=== PATIENT | female | born 1970 | race African-American/Black ===

== ENCOUNTER 2023-07-27 11:09 | Observation (INO) | payer OTHER ==
[2023-07-27 11:30] VITALS: BMI 33.8
[2023-07-27] MEDS ORDERED: ONDANSETRON 4 MG/2 ML VIAL IVPUSH ONE ×2 (12:08→21:11)
[2023-07-27] MEDS ORDERED: ONDANSETRON 4 MG/2 ML VIAL ONE ×2 (12:11→21:21)
[2023-07-27] MEDS ORDERED: MECLIZINE HCL 25 MG TABLET (FP) PO ONE (12:15)
[2023-07-27 12:29] LABS: BASO % 0.4 % (0-2.0); HEMATOCRIT 43.7 % (32.4-45.2); HEMOGLOBIN 14.5 GM/dL (10.7-15.3); MCH 31.3 pg (25.7-33.7); MCHC 33.2 g/dl (32.0-36.0); MEAN CELL VOLUME 94.4 fl (80-96); MEAN PLT VOLUME 8.3 fl (7.5-11.1); MONO % 10.6 % (3.8-10.2); PLATELET COUNT 272 10^3/uL (134-434); RBC 4.63 M/mm3 (3.60-5.2); RDW 13.3 % (11.6-15.6); WHITE BLOOD COUNT 6.6 K/mm3 (4.0-10.0)
[2023-07-27 12:37] LABS: INR 1.12 (0.83-1.09)
[2023-07-27 12:54] LABS: POTASSIUM 3.6 mmol/L (3.5-5.1)
[2023-07-27 12:59] LABS: ALBUMIN 3.7 g/dl (3.4-5.0)
[2023-07-27 13:02] LABS: BILIRUBIN,TOTAL 0.1 mg/dL (0.2-1); CHOLESTEROL 177 mg/dL (50-200); CREATININE 0.8 mg/dL (0.55-1.3); TOT PROT 7.5 g/dl (6.4-8.2)
[2023-07-27 13:03] LABS: LDL CHOLESTEROL (ONLY SJRH) 96 mg/dL (5-100)
[2023-07-27] MEDS ORDERED: MECLIZINE HCL 25 MG TABLET (FP) ONE (13:03)
[2023-07-27 13:05] LABS: HDL CHOLESTEROL 62 mg/dL (40-60)
[2023-07-27] MEDS ORDERED: ACETAMINOPHEN 500 MG TABLET (FP) PO ONE (19:26)
[2023-07-27] MEDS ORDERED: ACETAMINOPHEN 325 MG TABLET (FP) ONE (20:34)
[2023-07-27] MEDS ORDERED: OSELTAMIVIR PHOSPHATE 75 MG CAPSULE ONE (22:58)
[2023-07-27] MEDS: OSELTAMIVIR PHOSPHATE 75 MG CAPSULE PO SCH (23:08)
[2023-07-27 23:32] LABS: EPI CELLS >36 /uL (0-25.1); HYALINE CASTS 4 /uL (0-3.1); PH,URINE 5.5 (5.0-8.0); URINE APPEARANCE CLEAR; URINE BACTERIA 70 /uL (0-1359); URINE BILIRUBIN NEGATIVE (NEGATIVE); URINE COLOR YELLOW; URINE GLUCOSE (UA) NEGATIVE (NEGATIVE); URINE KETONE NEGATIVE (NEGATIVE); URINE LEUK ESTERASE 2+ (NEGATIVE); URINE NITRITE NEGATIVE (NEGATIVE); URINE PROTEIN NEGATIVE (NEGATIVE); URINE RBC 28 /uL (0-23.9); URINE UROBILINOGEN 0.2 mg/dL (0.2-1.0); URINE WBC 234 /uL (0-25.8)
[2023-07-28 08:14] LABS: POTASSIUM 3.5 mmol/L (3.5-5.1)
[2023-07-28 08:18] LABS: CALCIUM 9.3 mg/dL (8.5-10.1)
[2023-07-28 08:20] LABS: BLOOD UREA NITROGEN 18.2 mg/dL (7-18); HEMOGLOBIN 13.9 GM/dL (10.7-15.3); MCH 28.8 pg (25.7-33.7); MCHC 30.2 g/dl (32.0-36.0); MEAN CELL VOLUME 95.4 fl (80-96); MEAN PLT VOLUME 9.5 fl (7.5-11.1); RBC 4.83 M/mm3 (3.60-5.2); RDW 13.1 % (11.6-15.6)
[2023-07-28 08:22] LABS: CREATININE 0.9 mg/dL (0.55-1.3)
[2023-07-28 08:26] LABS: PLATELET COUNT 169 10^3/uL (134-434); WHITE BLOOD COUNT 8.4 K/mm3 (4.0-10.0)
[2023-07-28 09:37] LABS: ANISOCYTOSIS 1+
[2023-07-28] MEDS: CHLORTHALIDONE 25 MG TABLET PO SCH (11:10)
[2023-07-28] MEDS: OSELTAMIVIR PHOSPHATE 75 MG CAPSULE PO SCH ×2 (11:10→21:20)
[2023-07-28] MEDS: amLODIPine BESYLATE 10 MG TABLET (FP) PO SCH (11:10)
[2023-07-28] MEDS ORDERED: ATORVASTATIN CA 40 MG TABLET (FP) ONE (21:05)
[2023-07-28] MEDS ORDERED: OSELTAMIVIR PHOSPHATE 75 MG CAPSULE ONE (21:05)
[2023-07-28] MEDS ORDERED: ATORVASTATIN CA 40 MG TABLET (FP) PO SCH (22:00)
[2023-07-29] MEDS: amLODIPine BESYLATE 10 MG TABLET (FP) PO SCH ×2 (08:42→09:04)
[2023-07-29] MEDS: ASPIRIN COATED 81 MG TABLET.EC PO SCH ×2 (08:42→09:04)
[2023-07-29] MEDS: CHLORTHALIDONE 25 MG TABLET PO SCH ×2 (08:42→09:04)
[2023-07-29] MEDS: OSELTAMIVIR PHOSPHATE 75 MG CAPSULE PO SCH ×2 (08:42→09:04)
[2023-07-29 12:35] VITALS: BP 123/83; PULSE 64; RESP 20; TEMP 98.9
== END 2023-07-29 13:30 | disposition home or self-care (01) ==
LOC: JER 11:09 → JERBED 18:41
PROVIDERS: ADMIT Internal Medicine; ATTEND Internal Medicine
PROC: 3E033GC Introduction of Other Therapeutic Substance into Peripheral Vein, Percutaneous Approach (ICD-10-PCS; principal; 2023-07-27)
DX: J09.X2 Influenza due to identified novel influenza A virus with other respiratory manifestations (principal); F03.90 Unspecified dementia, unspecified severity, without behavioral disturbance, psychotic disturbance, mood disturbance, and anxiety; R42 Dizziness and giddiness; I10 Essential (primary) hypertension; R55 Syncope and collapse; Z88.8 Allergy status to other drugs, medicaments and biological substances
CPT/HCPCS: 0241U-QW; 36415; 70450-TC; 70551-TC; 71046-TC-FY; 80048; 80053; 80061; 81003; 82550; 83036; 84443; 84484; 85025; 85610; 85730; 86850; 86900; 86901; 87086; 87186; 93005; 93010; 93880-TC; 96374; 96376; 99285-25; G0378